=== PATIENT | female | born 1965 | race Caucasian/White ===

== ENCOUNTER 2022-08-23 12:38 | Emergency (ER) | payer OTHER, SELFPAY ==
--- NOTE | ~2022-08-23 | XR_ITS ---
EXAMINATION: XR HAND, RIGHT CLINICAL INFORMATION: Finger pain COMPARISON: None TECHNIQUE: PA, lateral, and oblique views of the right hand. FINDINGS: Degenerative changes are present at the DIP joints, most prominently in the middle finger and pain. There is some joint space narrowing by prominent osteophytes especially arising from distal end of the middle phalanx and the middle finger. No fractures are seen. XR/XR hand RT 2V IMPRESSION: Degenerative changes at the DIP joints, most prominently in the middle finger.
[2022-08-23 13:57] VITALS: BP 195/102; PULSE 74; RESP 16; TEMP 36.6; O2SAT 97; BMI 32.9
[2022-08-23 16:00] VITALS: BP 185/75; PULSE 70; RESP 16; TEMP 36.4; O2SAT 94
--- NOTE | 2022-08-23 16:29 | ED_ITS ---
HPI - Extremity Problem General Chief complaint: Extremity Injury, Upper Stated complaint: r mid finger inj Time Seen by Provider: 08/23/22 15:59 Source: patient Mode of arrival: ambulatory Limitations: no limitations History of Present Illness HPI Narrative: Patient is a 57-year-old female presents to the emergency department for evaluation of traumatic right middle finger pain. She reports banging it on the inside of a freezer last night, and has since developed swelling, decreased range of motion and pain. Denies any past injury to this hand. She is right hand dominant. She was advised by her primary care provider to go to an urgent care and have an x-ray obtained. Related Data Allergies Allergy/AdvReac Type Severity Reaction Status Date / Time Penicillins [PCN] Allergy Unknown RASH Unverified 06/09/20 15:37 zolpidem [From AMBIEN] Allergy Unknown RASH,REVERSE Unverified 06/09/20 15:37 REACTION- KEEPS AWAKE ambien Allergy Unknown Uncoded 04/11/20 00:00 milkproduct Allergy Unknown Uncoded 04/11/20 00:00 penicillin Allergy Unknown Uncoded 04/11/20 00:00 seasonal allergies Allergy Unknown Uncoded 04/11/20 00:00 Review of Systems Review of Systems: Musculoskeletal: Positive finger pain as noted in HPI Yes all other systems are reviewed and are negative PMFSH Past Medical History Attestation statement: The following information was validated with the patient. Source: old records reviewed Social History Social History Advance Directives: No Advance Directives Information Provided: Yes Physical Exam Vital Signs: Vital Signs: Last Vital Signs Temp 97.5 F 08/23/22 16:00 Pulse 70 08/23/22 16:00 Resp 16 08/23/22 16:00 BP 185/75 H 08/23/22 16:00 Pulse Ox 94 08/23/22 16:00 O2 Del Method 08/23/22 16:00 BMI result Body Mass Index 32.9 Appearance: Alert.?Oriented to person, place and time. No acute distress.?Normal affect. Eyes: Pupils equal, round and reactive to light.? ENT: Pharynx normal.?? Neck: Normal inspection.? Neck supple.?? CVS: Heart sounds normal. Normal heart rate and rhythm.? Pulses normal.?? Respiratory: No respiratory distress.? Lung sounds clear to auscultation bilaterally?? Abdomen: Soft and non-tender. Skin: Skin warm and dry.? Normal skin color.? ? Extremities: No lower extremity edema.? Right hand, 3rd digit diffuse swelling, no erythema, warmth, lesions, wounds. Decreased flexion, finger is held in extension. Neuro: Moves all extremities spontaneously. Sensation intact bilaterally. Ambulates with normal steady gait. Course Course Course Narrative: Patient is a 57-year-old female with a past medical history of HLD, HTN, anxiety presenting for evaluation of traumatic right 3rd digit pain. She is well- appearing, no indication of septic arthritis. Afebrile without tachycardia, no erythema or warmth. No lesions or wound. XR reveals no acute fracture dislocation, there are degenerative changes at the DIP joints, mostly prominent middle phalanx. Finger splint placed for comfort. Advised rest, ice, elevation of the hand, acetaminophen/ibuprofen as needed for pain. Outpatient follow-up with primary care provider. Discussed worrisome signs and symptoms return back to emergency department for. All questions answered. She was discharged in stable condition. MDM - Extremity (Nontraumatic) Medical Records Attestation: I reviewed the patient's medical records. Imaging Data XR hand: Radiologist's impression: XR/XR hand RT 2V IMPRESSION: Degenerative changes at the DIP joints, most prominently in the middle finger. Discharge Plan Discharge Clinical Impression: Finger sprain Patient Disposition: Home, Self-Care Instructions: Jammed Finger (ED), Finger Sprain (ED) Additional Instructions: As discussed, your x-ray today does not show any fracture or dislocation. There is indication of arthritis type changes to the fingers of this hand. You can take ibuprofen 200 mg, 3 tablets (600mg) every 6-8 hours as needed for pain, in addition to Tylenol 500 mg, 2 tablets (1,000mg) every 4-6 hours as needed for pain, but not to exceed 3 doses daily (3,000mg).? Apply ice to the area for 10-15 minutes 4-6 times daily, elevate your hand above the level of your chest when possible. You may use the finger splint as provided Follow-up with your primary care provider for persistent symptoms. Return to the emergency department with any new or worsening symptoms or concerns. Referrals: Gregory Cesar III, MD [Primary Care Provider] - Interventions: ED Discharge Assessment Last Done: 08/23/22 17:04 Discharge Date/Time: 08/23/22 17:04
== END 2022-08-23 17:04 | disposition home or self-care (01) ==
PROVIDERS: Emergency Provider Emergency Medicine; PCP Internal Medicine
DX: S63.612A Unspecified sprain of right middle finger, initial encounter (principal); W22.09XA Striking against other stationary object, initial encounter; Y93.89 Activity, other specified; Y92.010 Kitchen of single-family (private) house as the place of occurrence of the external cause; Y99.9 Unspecified external cause status
CPT/HCPCS: 29130; 73120; 99282; 99283